=== PATIENT | male | born 1985 | race Caucasian/White ===

== ENCOUNTER 2019-07-06 14:53 | Emergency (ER) | payer OTHER ==
[~2019-07-06] VITALS: Ht 182.9 cm; Wt 79.4 kg
[2019-07-06 14:57] VITALS: Ht 182.9 cm; Wt 79.4 kg
[2019-07-06 17:45] VITALS: BP 126/85
== END 2019-07-06 17:45 | disposition home or self-care (01) ==
LOC: ED 14:53
DX: S52.592A Other fractures of lower end of left radius, initial encounter for closed fracture (principal); W21.07XA Struck by softball, initial encounter; Y93.64 Activity, baseball; Y92.89 Other specified places as the place of occurrence of the external cause; Y99.8 Other external cause status
CPT/HCPCS: J3010; J3490; Q0092